=== PATIENT | male | born 1990 | race American Indian/Alaskan Native ===

== ENCOUNTER 2021-04-17 21:10 | Emergency (ER) | payer SELFPAY ==
[2021-04-18] MEDS ORDERED: SODIUM CHLORIDE IRRI 500 ML 500 ML IR ONE (00:57)
[2021-04-18] MEDS ORDERED: LIDOCAINE (1%) 10 MG/1 ML VIAL 20 ML MDV INFILTRATI ONE (00:59)
[2021-04-18] MEDS ORDERED: SODIUM CHLORIDE 0.9% IRR 500 ML BOTTLE IR ONE (01:00)
[2021-04-18] MEDS ORDERED: SODIUM CHLORIDE 0.9% 1000 ML 1,000 ML IV ONE (01:02)
[2021-04-18] MEDS ORDERED: TETANUS,DIPH,PERTUSS(ACELL) VACCINE 0.5 ML SYRINGE IM ONE (01:05)
--- NOTE | 2021-04-18 01:12 | Emergency Department Report ---
HPI - General Chief Complaint: Laceration/Recheck/Suture Time Seen by Provider: 04/18/21 00:47 - HPI HPI: Room 20 The patient is a 30-year-old male present with chief complaint of finger laceration. The patient states this afternoon at approximate 14 00 he cut his left finger on a metal seal. Patient states he has been bleeding from the site since the injury and now feels a little woozy. Patient gives his pain a score of 8/10. ED Past Medical Hx - Past Medical History Previous Medical History?: Yes Hx Asthma: Yes - Surgical History Past Surgical History?: No - Family History Family history: no significant - Social History Smoking Status: Never Smoker Substance Use Type: None (Denies illicit drug use), Alcohol (Occasional) - Medications Home Medications: Home Medications Medication Instructions Recorded Confirmed Last Taken Type cephALEXin [Keflex] 500 mg PO Q8HR #21 cap 04/18/21 Unknown Rx traMADoL [Ultram] 50 mg PO Q6HR PRN #10 tablet 04/18/21 Unknown Rx ED Review of Systems ROS: Stated complaint: BLEEDING RIGHT HAND Other details as noted in HPI Constitutional: no symptoms reported Eyes: denies: eye pain ENT: denies: throat pain Respiratory: no symptoms reported Cardiovascular: denies: chest pain Endocrine: no symptoms reported Gastrointestinal: denies: abdominal pain Genitourinary: denies: dysuria Musculoskeletal: myalgia Skin: as per HPI Neurological: headache Physical Exam - Physical Exam Vital Signs: Vital Signs 04/18/21 00:43 Temperature 98.6 F Pulse Rate 109 H Respiratory 20 Rate Blood Pressure 156/94 [Right] O2 Sat by Pulse 96 Oximetry Vital Signs 04/18/21 04/18/21 04/18/21 00:43 01:39 02:29 Temperature 98.6 F 98.9 F Pulse Rate 109 H 108 H 97 H Respiratory 20 20 20 Rate Blood Pressure 156/94 131/85 125/72 [Right] O2 Sat by Pulse 96 97 98 Oximetry Physical Exam: GENERAL: The patient is well-developed well-nourished male lying on stretcher not appearing to be in acute distress. [] HEENT: Normocephalic. Atraumatic. Extraocular motions are intact. Patient has moist mucous membranes. NECK: Supple. Trachea midline CHEST/LUNGS: Clear to auscultation. There is no respiratory distress noted. HEART/CARDIOVASCULAR: Regular. There is tachycardia. There is no gallop rub or murmur. SKIN: There is an approximately 7 mm laceration overlying the knuckle of the left index finger PIP. There is no edema. There is no diaphoresis. NEURO: The patient is awake, alert, and oriented. The patient is cooperative. The patient has no focal neurologic deficits. The patient has normal speech and gait. GCS 15 MUSCULOSKELETAL: There is no limitation range of motion. ED Course Vital Signs 04/18/21 00:43 Temperature 98.6 F Pulse Rate 109 H Respiratory 20 Rate Blood Pressure 156/94 [Right] O2 Sat by Pulse 96 Oximetry - Laceration /Wound Repair Left Finger Wound Location: upper extremity Wound Length (cm): 1 Wound's Depth, Shape: linear Irrigated w/ Saline (ccs): 500 Betadine Prep?: Yes Anesthesia: 1% Lidocaine Volume Anesthetic (ccs): 5 Wound Repaired With: sutures Suture Size/Type: 3:0, nylon Number of Sutures: 3 Layer Closure?: No Sterile Dressing Applied?: Yes ED Medical Decision Making - Lab Data Result diagrams: 04/18/21 01:22 Critical care attestation.: If time is entered above; I have spent that time in minutes in the direct care of this critically ill patient, excluding procedure time. ED Disposition Clinical Impression: Laceration of left index finger Disposition: HOME / SELF CARE / HOMELESS Is pt being admited?: No Does the pt Need Aspirin: No Condition: Stable Instructions: Laceration Care, Adult, Sutured Wound Care, [id number] Additional Instructions: Your sutures need to be removed in 7-10 days. Return to the emergency department should you develop worsening symptoms, inability to tolerate food or liquids, high fever or any other concerns Prescriptions: cephALEXin [Keflex] 500 mg PO Q8HR #21 cap traMADoL [Ultram] 50 mg PO Q6HR PRN #10 tablet PRN Reason: Pain Referrals: [facility] [Provider Group] - 3-5 Days Time of Disposition: 02:28
[2021-04-18 01:51] LABS: Basophils % (Auto) 0.2 % (0.0-1.8); Eosinophils # (Auto) 0.2 K/mm3 (0.0-0.4); Eosinophils % (Auto) 1.3 % (0.0-4.3); Hematocrit 43.4 % (35.5-45.6); Hemoglobin 14.1 gm/dl (11.8-15.2); Lymphocytes # (Auto) 4.3 K/mm3 (1.2-5.4); Lymphocytes % (Auto) 29.9 % (13.4-35.0); Mean Corpuscular HGB Conc 33 % (32-34); Mean Corpuscular Volume 82 fl (84-94); Monocytes # (Auto) 0.7 K/mm3 (0.0-0.8); Monocytes % (Auto) 5.2 % (0.0-7.3); Platelet Count 301 K/mm3 (140-440); Red Blood Count 5.32 M/mm3 (3.65-5.03); Red Cell Distribution Width 14.2 % (13.2-15.2)
[2021-04-18] MEDS ORDERED: WATER FOR INJ Sterile (PF) 10 ML ONE (02:06)
[2021-04-18] MEDS ORDERED: HYDROGEN PEROXIDE 118 ML SOLUTION TP ONE (02:07)
[2021-04-18 02:29] VITALS: BP 125/72
== END 2021-04-18 02:45 | disposition home or self-care (01) ==
LOC: ED 21:10
DX: S61.211S Laceration without foreign body of left index finger without damage to nail, sequela (principal); W45.8XXA Other foreign body or object entering through skin, initial encounter; Y93.89 Activity, other specified; Y92.89 Other specified places as the place of occurrence of the external cause; Y99.8 Other external cause status; J45.909 Unspecified asthma, uncomplicated
CPT/HCPCS: 12001; 36415; 85025; 90471; 90715; 96360; 99283; J3490; J7030; Q0162

== ENCOUNTER 2021-05-01 08:08 | Emergency (ER) | payer SELFPAY ==
[2021-05-01 08:16] VITALS: BP 145/112
--- NOTE | 2021-05-01 08:29 | Emergency Department Report ---
Suture/Staple Removal - HPI Chief Complaint: Laceration/Recheck/Suture Stated Complaint: SUTURE REMOVAL Time Seen by Provider: 05/01/21 08:16 When Sutures or Familia Placed: >14 Days Ago Wound Location: LEFT FINGER ED Review of Systems ROS: Stated complaint: SUTURE REMOVAL Other details as noted in HPI Comment: All other systems reviewed and negative ED Past Medical Hx - Past Medical History Previous Medical History?: Yes Hx Asthma: Yes - Surgical History Past Surgical History?: No - Family History Family history: no significant - Social History Smoking Status: Never Smoker Substance Use Type: None (Denies illicit drug use), Alcohol (Occasional) - Medications Home Medications: Home Medications Medication Instructions Recorded Confirmed Last Taken Type cephALEXin [Keflex] 500 mg PO Q8HR #21 cap 04/18/21 Unknown Rx traMADoL [Ultram] 50 mg PO Q6HR PRN #10 tablet 04/18/21 Unknown Rx Suture Removal Exam - Exam General: Vital signs noted. No distress. Alert and acting appropriately. Wound: No Pathologic Erythema, No Tenderness, No Drainage, No Pus, No Wound Dehiscence Other Systems: All other systems reviewed and are unremarkable. ED Course Vital Signs 05/01/21 08:15 Temperature 97.7 F Pulse Rate 92 H Respiratory 16 Rate Blood Pressure 145/112 O2 Sat by Pulse 98 Oximetry ED Recheck [facility] [place] - Core Measures Measure Exclusions: not indicated - Differential Diagnosis Suture/Staple Removal - Medical Decision Making SUTURES REMOVED HAVE BEEN IN 14 DAYS; AND WERE COVERED WITH SKIN SUTURE LINE REMAINS APPROXIMATED NO BLEEDING NO DRAINAGE- HAS TAKEN HIS KEFLEX WOUND CLEANED DRESSING APPLIED BP NOTED TO BE INC. NO CP OR SOB HE STATES HE JUST DOESNT LIKE NEEDLES PT EDUCATED ON MONITORING BP NICOLASA GIVEN HIM A REFERRAL TO PCP IF IT SHOULD REMAIN ELEVATED Vital Signs 05/01/21 05/01/21 08:15 08:44 Temperature 97.7 F Pulse Rate 92 H 90 Respiratory 16 16 Rate Blood Pressure 145/112 O2 Sat by Pulse 98 98 Oximetry DC HOME WITH DC PLAN OF CARE INCLUDING DIET, ACTIVITY, MEDS, FOLLOW UP AND MONITORING BP. HE VERBALIZES UNDERSTANDING OF D/C PLAN OF CARE. Critical care attestation.: If time is entered above; I have spent that time in minutes in the direct care of this critically ill patient, excluding procedure time. ED Disposition Clinical Impression: Visit for suture removal, Elevated blood pressure reading, Obese Disposition: 01 HOME / SELF CARE / HOMELESS Is pt being admited?: No Does the pt Need Aspirin: No Condition: Stable Instructions: Wound Closure Removal, Care After Additional Instructions: KEEP WOUND CLEAN AND DRY USE CAUTION OVER THE NEXT COUPLE OF DAYS EXTERIOR SUTURE LINE HEALS KEEP COVERED WHEN WORKING MOTRIN OR TYLENOL FOR PAIN MONITOR YOUR BLOOD PRESSURE- IT WAS ELEVATED TODAY- IF REMAINS HIGH SEE PCP REFERRAL BELOW Referrals: DEMETRIUS DAVIS MD [Staff Physician] - 3-5 Days Time of Disposition: 08:37
== END 2021-05-01 09:02 | disposition home or self-care (01) ==
LOC: ED 08:08
DX: S61.219D Laceration without foreign body of unspecified finger without damage to nail, subsequent encounter (principal); X58.XXXD Exposure to other specified factors, subsequent encounter; R03.0 Elevated blood-pressure reading, without diagnosis of hypertension; E66.9 Obesity, unspecified; J45.909 Unspecified asthma, uncomplicated
CPT/HCPCS: 99282

== ENCOUNTER 2021-12-02 14:46 | Emergency (ER) | payer SELFPAY | END 2021-12-02 14:50 | disposition left against medical advice (07) | LOC: ED 14:46 | DX: Z04.1 Encounter for examination and observation following transport accident (principal); Z53.21 Procedure and treatment not carried out due to patient leaving prior to being seen by health care provider; V87.7XXA Person injured in collision between other specified motor vehicles (traffic), initial encounter; Y93.89 Activity, other specified; Y92.488 Other paved roadways as the place of occurrence of the external cause; Y99.8 Other external cause status ==